=== PATIENT | female | born 1960 | race Caucasian/White ===

== ENCOUNTER 2016-09-24 13:10 | Inpatient (IN) | payer OTHER ==
[~2016-09-24] VITALS: Ht 162.6 cm; Wt 100.7 kg
[2016-09-24 14:41] LABS: BASOPHIL % 0.4 % (0-2); PLATELET COUNT 239 x10^3mcL (130-400); RED CELL DISTRIBUTION WIDTH 14.3 % (11.5-14.5)
[2016-09-24 14:50] LABS: CARBON DIOXIDE 26.7 mmol/L (21-32); CHLORIDE SERUM 101 mmol/L (98-107); CREATININE SERUM 0.9 mg/dL (0.6-1.0); GFR1 > 60 mL/min; GLUCOSE SERUM 299 mg/dL (74-106); POTASSIUM SERUM 3.2 mmol/L (3.5-5.1); SODIUM SERUM 141 mmol/L (136-145)
[2016-09-24 14:56] LABS: ALBUMIN 3.7 g/dL (3.4-5.0); ALKALINE PHOSPHATASE 71 U/L (46-116); ALT/SGPT 26 U/L (14-59); AST/SGOT 14 U/L (15-37); BILIRUBIN TOTAL 0.6 mg/dL (0.20-1.00); CHOLESTEROL 174 mg/dL (<200); HDL CHOLESTEROL 54 mg/dL (40-60); TOTAL PROTEIN, SERUM 7.3 g/dL (6.4-8.2)
[2016-09-24] MEDS ORDERED: LEVOTHYROXINE0.1 M2 PO (15:20)
[2016-09-24] MEDS ORDERED: PROTONIX40 MG/Pac1 PO (15:21)
[2016-09-24] MEDS ORDERED: METOPROLOL SUCC50 M2 PO (15:21)
[2016-09-24] MEDS ORDERED: LISINOPRIL10 MG PO (15:22)
[2016-09-24] MEDS ORDERED: CLONAZEPAM2 M1 PO (15:22)
[2016-09-24] MEDS ORDERED: AMARYL2 MG PO (15:22)
[2016-09-24] MEDS ORDERED: CITALOPRAM HYDR40 M1 PO (15:22)
[2016-09-24] MEDS ORDERED: ATORVASTATIN CA20 M1 PO (15:22)
[2016-09-24 16:20] LABS: CHOLESTEROL/HDL RATIO 3.2; MAGNESIUM 1.9 mg/dL (1.8-2.4); PHOSPHOROUS 1.9 mg/dL (2.5-4.9)
[2016-09-24 16:23] LABS: T3 TOTAL 0.86 ng/mL
[2016-09-24 16:30] LABS: microscopic required? NO
[2016-09-24 16:30] LABS: FREE T4 0.97 ng/dL (0.76-1.46); FREE THYROXINE INDEX 2.7 ug/dL (1.4-4.5); T4(THYROXINE) 7.9 ug/dL (4.7-13.3)
[2016-09-24 17:12] LABS: urine erythrocyte NEGATIVE (NEGATIVE)
[2016-09-24 17:23] VITALS: BP 158/92
[2016-09-24 17:29] VITALS: Ht 162.6 cm; Wt 100.7 kg
[2016-09-24 18:01] LABS: AMPHETAMINE QUAL UR NONE DETECTED (NEG <=1000)
[2016-09-24 18:03] VITALS: BP 158/92
[2016-09-24 18:15] VITALS: BP 139/75
[2016-09-24 21:11] VITALS: BP 141/79
[2016-09-25 05:41] VITALS: BP 129/76
[2016-09-25 06:15] LABS: PLATELET COUNT 242 x10^3mcL (130-400); RED CELL DISTRIBUTION WIDTH 14.3 % (11.5-14.5)
[2016-09-25 06:35] LABS: BASOPHIL % 0 % (0-2)
[2016-09-25 06:37] LABS: CALCIUM 8.2 mg/dL (8.5-10.1); CARBON DIOXIDE 23.2 mmol/L (21-32); CHLORIDE SERUM 111 mmol/L (98-107); CREATININE SERUM 0.7 mg/dL (0.6-1.0); GFR1 > 60 mL/min; GLUCOSE SERUM 276 mg/dL (74-106); MAGNESIUM 2.4 mg/dL (1.8-2.4); PHOSPHOROUS 2.5 mg/dL (2.5-4.9); POTASSIUM SERUM 4.5 mmol/L (3.5-5.1); SODIUM SERUM 144 mmol/L (136-145)
[2016-09-25 09:39] VITALS: BP 120/68
[2016-09-25 14:05] VITALS: BP 123/77
[2016-09-25 17:01] VITALS: BP 102/60
[2016-09-25 21:04] VITALS: BP 163/95
[2016-09-25 21:05] VITALS: BP 140/77
[2016-09-26 06:09] VITALS: BP 124/80
[2016-09-26 07:19] LABS: PLATELET COUNT 229 x10^3mcL (130-400)
[2016-09-26 07:21] LABS: CALCIUM 8.3 mg/dL (8.5-10.1); CARBON DIOXIDE 23.9 mmol/L (21-32); CHLORIDE SERUM 109 mmol/L (98-107); CREATININE SERUM 0.7 mg/dL (0.6-1.0); GFR1 > 60 mL/min; GLUCOSE SERUM 308 mg/dL (74-106); MAGNESIUM 2.2 mg/dL (1.8-2.4); PHOSPHOROUS 3.5 mg/dL (2.5-4.9); POTASSIUM SERUM 4.3 mmol/L (3.5-5.1); SODIUM SERUM 141 mmol/L (136-145)
[2016-09-26 07:27] LABS: BASOPHIL % 0 % (0-2); RED CELL DISTRIBUTION WIDTH 14.7 % (11.5-14.5)
[2016-09-26 09:39] VITALS: BP 126/72
[2016-09-26] MEDS ORDERED: MONTELUKAST SOD10 M1 PO (12:08)
[2016-09-26 12:18] VITALS: BP 154/88
[2016-09-26 13:23] VITALS: BP 154/88
== END 2016-09-26 17:06 | disposition home or self-care (01) | DRG 133 ==
LOC: ED 13:10 → DU 15:24
PROVIDERS: Emergency Medicine; ADMIT Family Medicine
DX: J96.01 Acute respiratory failure with hypoxia (principal); N17.0 Acute kidney failure with tubular necrosis; J18.9 Pneumonia, unspecified organism; E11.51 Type 2 diabetes mellitus with diabetic peripheral angiopathy without gangrene; E87.8 Other disorders of electrolyte and fluid balance, not elsewhere classified; J45.901 Unspecified asthma with (acute) exacerbation; E11.65 Type 2 diabetes mellitus with hyperglycemia; M94.0 Chondrocostal junction syndrome [Tietze]; I10 Essential (primary) hypertension; E87.6 Hypokalemia; E03.9 Hypothyroidism, unspecified; E78.1 Pure hyperglyceridemia; E78.00 Pure hypercholesterolemia, unspecified; F41.1 Generalized anxiety disorder; E83.39 Other disorders of phosphorus metabolism; E66.9 Obesity, unspecified; Z68.38 Body mass index [BMI] 38.0-38.9, adult; Z79.84 Long term (current) use of oral hypoglycemic drugs
CPT/HCPCS: 36600; 82962; 83880; 84439; J0456; J0696; J1815; J1956; J2405; J2920; J2930; J3475; J3480; J7030; J7050; J7512; J7613; J7620; Q0092